=== PATIENT | female | born 1985 | race Hispanic/Latino ===

== ENCOUNTER 2019-05-23 00:07 | Observation (INO) | payer OTHER ==
[2019-05-23 00:58] LABS: Absolute Lymphocytes (CBC) 2.2 K/uL (0.7-4.9); Basophils % 0.5 % (0-1.3); Hematocrit 39.2 % (36.0-45.0); Lymphocytes % 29.5 % (15.3-44.8); MPV 9.2 fL (7.6-11.3); RBC Red Blood Cell Count 4.43 M/uL (3.86-4.86)
[2019-05-23 01:09] LABS: Albumin 3.7 g/dL (3.4-5.0); Bilirubin Direct 0.1 mg/dL (0-0.2); Bilirubin Total 0.5 mg/dL (0.2-1.0); Potassium 3.4 mmol/L (3.5-5.1); Protein, Total 6.6 g/dL (6.4-8.2)
[2019-05-23] MEDS ORDERED: LIDOCAINE VISCOUS 2% SOLN 15 ML UDC ONE (01:10)
[2019-05-23] MEDS ORDERED: MAGNE/ALUM HYDROXD 30 ML UCUP ONE (01:10)
[2019-05-23] MEDS ORDERED: MORPHINE 4 MG/ML SYR ONE (01:41)
[2019-05-23] MEDS ORDERED: ONDANSETRON 4 MG/2 ML VIAL ONE ×2 (01:41→12:19)
--- NOTE | 2019-05-23 03:07 | EDPHYS ---
Physician Documentation [facility] Name: Marycarmen Hernandez Age: 34 yrs Sex: Female : 1985 Arrival Date: 05/23/2019 Time: 00:10 Bed 20 Private MD: ED Physician Akhil Campbell HPI: 05/23 01:16 This 34 yrs old Female presents to ER via Ambulatory with complaints of Back pm1 Pain. 01:16 The patient presents with abdominal pain in the epigastric area. Onset: The pm1 symptoms/episode began/occurred yesterday. The symptoms radiate to back. Associated signs and symptoms: Pertinent negatives: nausea, vomiting, and diarrhea, chest pain, dysuria, fever, shortness of breath. The symptoms are described as sharp. Modifying factors: The symptoms are alleviated by nothing, the symptoms are aggravated by nothing. Severity of pain: in the emergency department the pain is actually worse. The patient has experienced similar episodes in the past, multiple times, but today's symptoms are worse, never had radiation of pain from epigastric area with GERD symptoms. The patient has not recently seen a physician. 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 - Social history:: Smoking status: Patient/guardian denies using tobacco. - Ebola Screening: : Patient negative for fever greater than or equal to 101.5 degrees Fahrenheit, and additional compatible Ebola Virus Disease symptoms Patient denies exposure to infectious person. ROS: 01:16 Constitutional: Negative for fever, chills, and weight loss, Eyes: Negative for injury, pm1 pain, redness, and discharge, ENT: Negative for injury, pain, and discharge, Neck: Negative for injury, pain, and swelling, Cardiovascular: Negative for chest pain, palpitations, and edema, Respiratory: Negative for shortness of breath, cough, wheezing, and pleuritic chest pain. 01:16 Back: Negative for injury and pain, : Negative for injury, bleeding, discharge, and swelling, MS/Extremity: Negative for injury and deformity, Skin: Negative for injury, rash, and discoloration, Neuro: Negative for headache, weakness, numbness, tingling, and seizure. 01:16 Abdomen/GI: Positive for abdominal pain, Negative for nausea, vomiting, and diarrhea, constipation. Exam: 01:16 Constitutional: This is a well developed, well nourished patient who is awake, alert, pm1 and in no acute distress. Head/Face: Normocephalic, atraumatic. Eyes: Pupils equal round and reactive to light, extra-ocular motions intact. Lids and lashes normal. Conjunctiva and sclera are non-icteric and not injected. Cornea within normal limits. Periorbital areas with no swelling, redness, or edema. ENT: Nares patent. No nasal discharge, no septal abnormalities noted. Tympanic membranes are normal and external auditory canals are clear. Oropharynx with no redness, swelling, or masses, exudates, or evidence of obstruction, uvula midline. Mucous membranes moist. Neck: Trachea midline, no thyromegaly or masses palpated, and no cervical lymphadenopathy. Supple, full range of motion without nuchal rigidity, or vertebral point tenderness. No Meningismus. Chest/axilla: Normal chest wall appearance and motion. Nontender with no deformity. No lesions are appreciated. Cardiovascular: Regular rate and rhythm with a normal S1 and S2. No gallops, murmurs, or rubs. Normal PMI, no JVD. No pulse deficits. Respiratory: Lungs have equal breath sounds bilaterally, clear to auscultation and percussion. No rales, rhonchi or wheezes noted. No increased work of breathing, no retractions or nasal flaring. 01:16 Back: No spinal tenderness. No costovertebral tenderness. Full range of motion. Skin: Warm, dry with normal turgor. Normal color with no rashes, no lesions, and no evidence of cellulitis. MS/ Extremity: Pulses equal, no cyanosis. Neurovascular intact. Full, normal range of motion. 01:16 Abdomen/GI: Inspection: abdomen appears normal, Bowel sounds: normal, Palpation: abdomen is soft and non-tender, in all quadrants, mass, is not appreciated, rebound tenderness, is not appreciated. 01:16 Neuro: Orientation: is normal, Motor: is normal, moves all fours. Vital Signs: 00:31 BP 128 / 78; Pulse 80; Resp 18; Temp 97.7; Pulse Ox 100% on R/A; 01:31 BP 120 / 71; Pulse 58; Resp 18; Pulse Ox 100% on R/A; 02:45 BP 98 / 52; Pulse 60; Resp 18; Pulse Ox 100% on R/A; wh 04:00 BP 102 / 49; Pulse 62; Resp 16; Pulse Ox 99% on R/A; jb4 05:00 BP 106 / 63; Pulse 59; Resp 18; Pulse Ox 99% on R/A; jb4 06:00 BP 92 / 45; Pulse 77; Resp 16; Pulse Ox 100% ; jb4 06:15 BP 100 / 58; Pulse 72; Resp 16; Pulse Ox 100% on R/A; jb4 MDM: 00:25 Patient medically screened. [facility] 01:29 Data reviewed: vital signs. Data interpreted: Pulse oximetry: on room air is 100 %. pm1 Interpretation: normal. 03:05 Physician consultation: Albaro Rick MD was called at 03:00, message left and text pm1 sent. 05/23 00:35 Order name: Basic Metabolic Panel; Complete Time: 05/23 00:35 Order name: CBC with Diff; Complete Time: 05/23 00:35 Order name: Creatinine for Radiology; Complete Time: 05/23 00:35 Order name: Hepatic Function; Complete Time: 05/23 00:35 Order name: Lipase; Complete Time: : 05/23 00:59 Order name: Urine Dipstick--Ancillary (enter results); Complete Time: 03:35 [facility] 05/23 00:59 Order name: Urine --Ancillary (enter results); Complete Time: 03:35 [facility] 05/23 01:34 Order name: CT Abd/Pelvis - IV Contrast Only pm1 05/23 00:35 Order name: IV Saline Lock; Complete Time: 00:45 05/23 00:35 Order name: Labs collected and sent; Complete Time: 00: 05/23 00:35 Order name: Urine Dipstick-Ancillary (obtain specimen); Complete Time: 00: 05/23 00:35 Order name: Urine Test (obtain specimen); Complete Time: 05/23 03:09 Order name: NPO; Complete Time: 03:37 pm1 05/23 05:43 Order name: NPO EDMS Administered Medications: 01:12 Drug: GI Cocktail without - (Maalox Suspension 30 ml, Lidocaine Liquid 2 % 15 wh ml) Route: PO; 01:40 Follow up: Response: No adverse reaction; Pain is unchanged, physician notified 01:44 Drug: morphine 4 mg {Note: RASS 0.} Route: IVP; Site: right antecubital; 01:44 Drug: Zofran 4 mg Route: IVP; Site: right antecubital; 04:09 Drug: Zosyn 3.375 grams Route: IVPB; Infused Over: 60 mins; Site: right antecubital; 4 05:09 Follow up: Response: No adverse reaction; IV Status: Completed infusion; IV Intake: jb4 100ml 04:09 Drug: NS 0.9% 1000 ml Route: IV; Rate: 125 ml/hr; Site: right antecubital; jb4 Disposition: 05/23/19 03:06 Hospitalization ordered by Albaro Rick for Observation. Preliminary diagnosis is Cholecystitis. - Bed requested for Telemetry/MedSurg (observation). - Status is Observation. jb4 - Condition is Stable. - Problem is new. - Symptoms have improved. UTI on Admission? No Addendum: 05/25/2019 09:19 Co-signature as Attending Physician, Akhil Campbell MD I agree with the assessment and c roche plan of care. Signatures: Dispatcher [employer] Akhil Ramirez MD MD cha Garcia, Cindy RN RN Clyde Machado NP PODIATRIC ASSISTANT pm1 Albaro Reed RN RN jb4 Nan Lin Corrections: (The following items were deleted from the chart) 05/23 00:27 00:26 Knee Immobilizer ordered. pm1 pm1 00:27 00:26 Crutches ordered. pm1 pm1 01:38 01:35 Abdomen Pelvis W Con+CT.RAD.BRZ ordered. EDNY EDMS 05:40 03:15 NPO ordered. EDNY EDMS 05:45 03:06 Hospitalization Ordered by Albaor Rick MD for Observation. Preliminary cg diagnosis is Cholecystitis. Bed requested for Telemetry/MedSurg (observation). Status is Observation. Condition is Stable. Problem is new. Symptoms have improved. UTI on Admission? No. pm1 06:24 05:45 05/23/2019 03:06 Hospitalization Ordered by Albaro Rick MD for Observation. jb4 Preliminary diagnosis is Cholecystitis. Bed requested for Telemetry/MedSurg (observation). Status is Observation. Condition is Stable. Problem is new. Symptoms have improved. UTI on Admission? No. cg
--- NOTE | 2019-05-23 03:07 | ER ---
Nurse's Notes [facility] Name: Marycarmen Hernandez Age: 34 yrs Sex: Female : 1985 Arrival Date: 05/23/2019 Time: 00:10 Bed 20 Private MD: Diagnosis: Cholecystitis Presentation: 05/23 00:26 Presenting complaint: Patient states: she is having epigastric pain that started a wh couple of hours ago. Pt has Hx of GERD and takes Prilosec at home. Transition of care: patient was not received from another setting of care. Onset of symptoms was May 22, 2019. Risk Assessment: Do you want to hurt yourself or someone else? Patient reports no desire to harm self or others. Initial Sepsis Screen: Does the patient meet any 2 criteria? No. Patient's initial sepsis screen is negative. Does the patient have a suspected source of infection? No. Patient's initial sepsis screen is negative. Care prior to arrival: None. 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 - Social history:: Smoking status: Patient/guardian denies using tobacco. - Ebola Screening: : Patient negative for fever greater than or equal to 101.5 degrees Fahrenheit, and additional compatible Ebola Virus Disease symptoms Patient denies exposure to infectious person. Screenin:27 Abuse screen: Denies threats or abuse. Denies injuries from another. Nutritional screening: No deficits noted. Tuberculosis screening: No symptoms or risk factors identified. Fall Risk None identified. Assessment: 00:28 General: Appears in no apparent distress. Behavior is calm, cooperative, appropriate for age. Pain: Complains of pain in epigastric area Pain radiates to back Pain currently is 6 out of 10 on a pain scale. Quality of pain is described as sharp, Pain began 3 hours ago. Neuro: Level of Consciousness is awake, alert, obeys commands, Oriented to person, place, time, situation, Appropriate for age. Cardiovascular: Heart tones S1 S2. Respiratory: Airway is patent Respiratory effort is even, unlabored, Respiratory pattern is regular, symmetrical. GI: Abdomen is flat, Bowel sounds present X 4 quads. Abd is soft and non tender. : No signs and/or symptoms were reported regarding the genitourinary system. EENT: No signs and/or symptoms were reported regarding the EENT system. Derm: Skin is intact, is healthy with good turgor, Skin is pink, warm \T\ dry. normal. Musculoskeletal: Circulation, motion, and sensation intact. 01:31 Reassessment: Patient appears in no apparent distress at this time. No changes from previously documented assessment. Patient and/or family updated on plan of care and expected duration. Pain level reassessed. Patient is alert, oriented x 3, equal unlabored respirations, skin warm/dry/pink. 02:45 Reassessment: Patient appears in no apparent distress at this time. No changes from previously documented assessment. Patient and/or family updated on plan of care and expected duration. Pain level reassessed. Patient is alert, oriented x 3, equal unlabored respirations, skin warm/dry/pink. Patient states feeling better. 03:45 Reassessment: Patient appears in no apparent distress at this time. Patient and/or jb4 family updated on plan of care and expected duration. Pain level reassessed. Patient is alert, oriented x 3, equal unlabored respirations, skin warm/dry/pink. 05:00 Reassessment: Patient appears in no apparent distress at this time. Patient and/or jb4 family updated on plan of care and expected duration. Pain level reassessed. Patient is alert, oriented x 3, equal unlabored respirations, skin warm/dry/pink. Patient states feeling better. 06:02 Reassessment: Patient appears in no apparent distress at this time. Patient and/or jb4 family updated on plan of care and expected duration. Pain level reassessed. Patient is alert, oriented x 3, equal unlabored respirations, skin warm/dry/pink. Attempted to call report, will call back in 15minutes. Vital Signs: 00:31 BP 128 / 78; Pulse 80; Resp 18; Temp 97.7; Pulse Ox 100% on R/A; wh 01:31 BP 120 / 71; Pulse 58; Resp 18; Pulse Ox 100% on R/A; wh 02:45 BP 98 / 52; Pulse 60; Resp 18; Pulse Ox 100% on R/A; wh 04:00 BP 102 / 49; Pulse 62; Resp 16; Pulse Ox 99% on R/A; jb4 05:00 BP 106 / 63; Pulse 59; Resp 18; Pulse Ox 99% on R/A; jb4 06:00 BP 92 / 45; Pulse 77; Resp 16; Pulse Ox 100% ; jb4 06:15 BP 100 / 58; Pulse 72; Resp 16; Pulse Ox 100% on R/A; jb4 ED Course: 00:10 Patient arrived in ED. cl3 00:20 Nan Lin is Primary Nurse. wh 00:23 Clyde Machado NP is PHCP. pm1 00:23 Akhil Campbell MD is Attending Physician. pm1 00:27 Triage completed. wh 00:29 Arm band placed on left wrist. wh 00:30 Patient has correct armband on for positive identification. Bed in low position. Call light in reach. Side rails up X 1. Pulse ox on. NIBP on. 02:09 CT Abd/Pelvis - IV Contrast Only In Process Unspecified. EDMS 03:06 Albaro Rick MD is Hospitalizing Provider. pm1 04:00 Primary Nurse role handed off by Nan Lin jb4 04:00 Albaro Reed RN is Primary Nurse. jb4 06:22 No provider procedures requiring assistance completed. Patient admitted, IV remains in jb4 place. Administered Medications: 01:12 Drug: GI Cocktail without - (Maalox Suspension 30 ml, Lidocaine Liquid 2 % 15 wh ml) Route: PO; 01:40 Follow up: Response: No adverse reaction; Pain is unchanged, physician notified 01:44 Drug: morphine 4 mg {Note: RASS 0.} Route: IVP; Site: right antecubital; 01:44 Drug: Zofran 4 mg Route: IVP; Site: right antecubital; 04:09 Drug: Zosyn 3.375 grams Route: IVPB; Infused Over: 60 mins; Site: right antecubital; 4 05:09 Follow up: Response: No adverse reaction; IV Status: Completed infusion; IV Intake: jb4 100ml 04:09 Drug: NS 0.9% 1000 ml Route: IV; Rate: 125 ml/hr; Site: right antecubital; jb4 Intake: 05:09 IV: 100ml; Total: 100ml. jb4 Outcome: 03:06 Decision to Hospitalize by Provider. pm1 06:23 Admitted to Tele accompanied by tech, via wheelchair, room 404, with chart, Report jb4 called to JORGE Fleming 06:23 Condition: stable 06:23 Discharge instructions given to patient, Instructed on the need for admit, Demonstrated understanding of instructions. 06:24 Patient left the ED. jb4 Signatures: Dispatcher [employer] EDClyde Salazar, PRODUCTION OPERATIONS MANAGER PRODUCTION OPERATIONS MANAGER pm1 Albaro Reed, RN RN jb4 Nan Lin Charde cl3
[2019-05-23] MEDS ORDERED: ONDANSETRON 4 MG/2 ML VIAL IV PRN ×3 (03:08→14:05)
[2019-05-23] MEDS ORDERED: MORPHINE 4 MG/ML SYR IV PRN ×2 (03:08→05:41)
[2019-05-23 03:30] LABS: Urine Blood NEGATIVE (NEG); Urine Glucose NEGATIVE (NEG); Urine Protein 1+ (NEG); Urine Specific Gravity 1.015 (1.005-1.030); Urine pH 8.5 (5.0-7.0)
[2019-05-23] MEDS ORDERED: PIPER/TAZO/NS 3.375gm 3.375 GM/100 ML BAG IVPB SCH ×2 (03:30→12:00)
[2019-05-23] MEDS ORDERED: PIPER/TAZO/NS 3.375gm 3.375 GM/100 ML BAG ONE (03:55)
[2019-05-23] MEDS ORDERED: NA CHLORIDE 0.9% 1,000 ML ONE (03:55)
[2019-05-23] MEDS ORDERED: D5 0.45 NS 1,000 ML IV SCH (04:00)
[2019-05-23 06:37] VITALS: BMI 25.8
[2019-05-23] MEDS: D5 0.45 NS 1,000 ML IV SCH ×2 (07:22→14:00)
[2019-05-23] MEDS ORDERED: CEFOXITIN SODIUM 1 GM/VIAL IVPB ONE (09:51)
[2019-05-23] MEDS: PIPER/TAZO/NS 3.375gm 3.375 GM/100 ML BAG IVPB SCH ×2 (10:41→20:00)
--- NOTE | 2019-05-23 10:42 | PREOPHP ---
Date of Admission: 05/23/2019 Reason: Abdominal pain. History Of Present Illness: The patient is a 34-year-old female who comes in with acute onset of epi gastric pain going to the back, associated with nausea, vomiting, bloating, belching, and heartburn. No sore throat, runny nose, cough, headaches, or dizziness. No chest pain. No fever or chills. No diarrhea, constipation, or blood in her stool. No dysuria or hematuria. This is her third attack i n the past week. She has had some milder attacks in the past, she has attributed that to heartburn a nd this is always postprandial in nature. Following greasy and spicy foods. Review of Systems: Otherwise unremarkable. Past Medical History: Negative. Past Surgical History: Negative. Allergies: NONE. Social History: Patient does not smoke. Drinks occasionally. Family History: Significant for diabetes. Physical Examination: Vital Signs: Stable. She is currently afebrile. She is awake, alert, and oriented x3. Head and Neck: Cranial 2 through 12 grossly within normal limits. No neck masses. No JVD. Throat clear. Neck is supple. No evidence of icterus. Chest: Clear. Heart: S1 and S2. Abdomen: Soft, nondistended. Minimal tenderness in the right upper quadrant. No rebound, rigidity, or guarding at this time. Extremities: Adequately perfused. Nontender. Neuro: Nonfocal. Laboratory Data: Reviewed. White count is normal. Chemistry reviewed. LFT, amylase and lipase are normal. CT of the abdomen and pelvis shows cholelithiasis with thickening of the gallbladder wall c onsistent with cholecystitis. Assessment: Acute cholecystitis and cholelithiasis. Plan: Admit, n.p.o., IV fluid, IV antibiotic, to the OR for lap shubham, possible open. Patient under stands the risks, benefits, and alternatives and agrees to procedure. /MODL Voice ID: [id number]
[2019-05-23] MEDS ORDERED: CEFOXITIN/SWI 1gm 1 GM/10 ML SYR IV SCH (11:00)
[2019-05-23 11:34] LABS: Urine Appearance TURBID; Urine Bilirubin NEGATIVE (NEG); Urine Blood NEGATIVE (NEG); Urine Color YELLOW; Urine Glucose NEGATIVE (NEG); Urine Protein NEGATIVE (NEG); Urine Specific Gravity >=1.030 (1.005-1.030); Urine Urobilinogen 0.2 mg/dL (0.2-1.0); Urine pH 8.5 (5.0-7.0)
[2019-05-23 11:37] LABS: Urine Microscopic Reflex ORDER UMIC
[2019-05-23] MEDS ORDERED: Ringers Lactate 1,000 ML IV ONE (11:48)
[2019-05-23 12:00] LABS: Urine Amorphous Sediment 4+ /HPF (NONE SEEN); Urine Bacteria <20 /HPF (<20); Urine Culture Reflex Order NOT NEEDED; Urine RBC <5 /HPF (NONE SEEN)
[2019-05-23] MEDS ORDERED: PROPOFOL 200 MG/20 ML VIAL IV ONE (12:18)
[2019-05-23] MEDS ORDERED: MIDAZOLAM HCL 2 MG/2 ML INJ ONE (12:18)
[2019-05-23] MEDS ORDERED: FENTANYL CITR 100 MCG/2 ML ONE (12:18)
[2019-05-23] MEDS ORDERED: GLYCOPYRROLATE 0.2 MG/ML SYR ONE (12:19)
[2019-05-23] MEDS ORDERED: NEOSTIGMINE 1 MG/ML -10 ML VIAL ONE (12:19)
[2019-05-23] MEDS ORDERED: KETOROLAC 30 MG/ML INJ ONE (12:19)
[2019-05-23] MEDS ORDERED: MORPHINE 10 MG/ML VIAL ONE (12:19)
[2019-05-23] MEDS ORDERED: ROCURONIUM 50 MG/5 ML VIAL IV ONE (12:20)
[2019-05-23] MEDS ORDERED: LIDOCAINE 1% MPF 5 ML VIAL ONE (12:20)
[2019-05-23] MEDS ORDERED: Mastisol Adhesive Liq ONE (13:15)
--- NOTE | 2019-05-23 13:26 | P.OP ---
Pest Locator: Hillary Chopra RN Preoperative diagnosis: Acute Cholecystitis and Cholelithiasis Postoperative diagnosis: same Primary procedure: Lap Ronda Anesthesia: General Estimated blood loss: min Specimen: GB Findings: as above Complications: None Transferred to: Recovery Room Condition: Good
[2019-05-23] MEDS: HYDROMORPHONE HCL 1 MG/ML INJ ONE ×2 (14:01→14:09)
[2019-05-23] MEDS ORDERED: HYDROCODONE/APAP 7.5/325 MG TAB PO PRN (14:05)
[2019-05-23] MEDS ORDERED: HYDROMORPHONE HCL 1 MG/ML INJ ONE (14:21)
[2019-05-23] MEDS: HYDROMORPHONE HCL 1 MG/ML INJ IV PRN ×2 (15:22→19:58)
[2019-05-23] MEDS ORDERED: DIPHENHYDRAMINE 25 MG TAB/CAP PO PRN (16:38)
[2019-05-23 16:56] VITALS: O2SAT 96
[2019-05-23] MEDS ORDERED: PROMETHAZINE 25 MG/ML VIAL IV PRN (19:21)
--- NOTE | 2019-05-24 01:03 | OP ---
Date of Procedure: 05/23/2019 Surgeon: Joby Krishnamurthy MD Maintenance Supervisor 2Nd Shift: Hillary Chopra RN Preoperative Diagnoses: 1. Acute cholecystitis and cholelithiasis. 2. Umbilical hernia. Postoperative Diagnoses: 1. Acute cholecystitis and cholelithiasis. 2. Umbilical hernia. Procedure: 1. Laparoscopic cholecystectomy. 2. Repair of umbilical hernia. Estimated Blood Loss: Minimal. Specimens: Gallbladder, hernia sac and contents. Findings: As above. Anesthesia: General. Complications: None. Disposition: Patient tolerated the procedure, in stable condition, taken to Recovery in good general condition. Procedure In Detail: Patient was brought to the OR and placed in supine position. General anesthesia was begun. Patient was prepped and draped in the usual sterile fashion. Marcaine 0.5% was infiltrated locally. A 15-blade was used to make a 1 cm midline incision over the umbilical hernia that was present. So, the hernia sac and contents were identified, dissected free, and dissected through the fascia and then excised, sent to Pathology. Then a 1 cm incision was made by extending the hernia defect and then #1 Vicryl stay suture was placed. Peritoneal cavity was entered with sharp and blunt dissection. 12 mm trocar was placed into the peritoneal cavity under direct vision. Pneumoperitoneum was established. Three 5 mm trocars were placed, 1 in the epigastrium just to the right of midline and 2 in the right subcostal region. Laparoscopy revealed acute inflammation of the gallbladder. Fundus retracted superiorly. Infundibulum was identified and retracted inferolaterally. Cystic duct and cystic artery were clearly identified with blunt dissection. Clips placed. Both cysts were divided. Cautery was used to remove the gallbladder from the liver bed. Bleeding on the liver bed controlled with cautery. The gallbladder was retrieved through the umbilicus via an EndoCatch bag. The right upper quadrant was irrigated. Effluent was clear. No evidence of bleeding or bile leakage appreciated. Subsequently, all trocars were removed under direct vision. Stay sutures were tied to each other across the fascial defect. Subcutaneous wounds were irrigated. Bleeding controlled with cautery. A 3-0 chromic used to approximate the subcutaneous tissue and close the skin. Sterile dressing was applied. Patient was awakened and taken to Recovery in good general condition. JOAQUIN/LIZZY Voice ID: [id number] Report ID: [id number] MTDD
[2019-05-24] MEDS: HYDROMORPHONE HCL 1 MG/ML INJ IV PRN (03:07)
[2019-05-24] MEDS: PIPER/TAZO/NS 3.375gm 3.375 GM/100 ML BAG IVPB SCH (03:08)
[2019-05-24 08:37] VITALS: BP 109/53; TEMP 99
[2019-05-24] MEDS ORDERED: TRAMADOL 37.5mg/APAP 325mg PER TAB PO ONE (12:00)
--- NOTE | 2019-05-25 03:35 | DS ---
Date of Discharge: 05/24/2019 Admitting Diagnosis: Acute cholecystitis and cholelithiasis. Discharge Diagnosis: Acute cholecystitis and cholelithiasis. Procedure Performed: Laparoscopic cholecystectomy. Hospital Course: Patient is a 34-year-old female was admitted with abdominal pain, workup revealed a cute cholecystitis and cholelithiasis. Patient underwent lap choly yesterday. Postoperatively she i s tolerating diet and ambulating, pain controlled with p.o. pain medication, afebrile. Therefore pat ient will be discharged to home. Disposition: Home. Condition: Stable. Discharge Instructions: Resume home medications and diet. Activity as tolerated. No heavy lifting. Remove outer dressing in a.m. Shower. Keep wound clean and dry. Keep Steri-Strips on at all time s. Incentive spirometry is ordered. Ultracet 1 tablet p.o. q.4 p.r.n. pain. Follow up in my office in a week. Call for appointment. JOAQUIN/LIZZY Voice ID: [id number] Report ID: [id number]
--- NOTE | 2019-05-25 11:16 | RAD REPORT ---
EXAM DESCRIPTION: CT ABDOMEN AND PELVIS WITH CONTRAST. CLINICAL HISTORY: Epigastric pain. COMPARISON: None. TECHNIQUE: Axial CT imaging of the abdomen and pelvis performed with intravenous contrast. Reformatt ed coronal and sagittal images reviewed. A dose reduction technique was utilized with automated exposure control according to patient size. FINDINGS: Clear lung bases. Heart is normal in size. Normal liver. The gallbladder contains a few stones. There is diffuse gallbladder wall thickening. No biliary dilatation. Normal spleen, pancreas, adrenal glands, and kidneys. Normal aorta and inferior vena cava caliber. No adenopathy. Mesenteric vessels appear normal. Normal stomach, small bowel loops, right lower quadrant appendix, and colon. No adenopathy, ascites, or free air. Tiny fat-containing umbilical hernia. Normal bladder. Minimal endometrial fluid. Normal ovarian follicular changes. No pelvic free fluid or adenopathy. Normal lumbosacral alignment. Intact bony pelvis. Oral hips. Soft tissues appear normal. IMPRESSION: 1. Cholelithiasis with gallbladder wall thickening compatible with acute cholecystitis. No biliary dilatation. 2. Tiny fat-containing umbilical hernia.. Electronically signed by: Conchis Alcaraz DO 05/23/2019 2:40 AM CDT Due to temporary technical issues with the PACS/Fluency reporting system, reports are being signed by the in house radiologist as a courtesy to ensure prompt reporting. The interpreting radiologist is f ully responsible for the content of the report.
== END 2019-05-24 11:37 | disposition home or self-care (01) ==
LOC: ER 00:07 → 4TH 06:09
PROVIDERS: ADMIT Surgery; ATTEND Surgery
PROC: 0WQF0ZZ Repair Abdominal Wall, Open Approach (ICD-10-PCS; 2019-05-23)
PROC: 0FT44ZZ Resection of Gallbladder, Percutaneous Endoscopic Approach (ICD-10-PCS; principal; 2019-05-23 12:30)
DX: K80.12 Calculus of gallbladder with acute and chronic cholecystitis without obstruction (principal); K42.9 Umbilical hernia without obstruction or gangrene; K21.9 Gastro-esophageal reflux disease without esophagitis; Z83.3 Family history of diabetes mellitus
CPT/HCPCS: 96365; 85025; 80048; 36415; 81025; 80076; 88302; 88304; 83690; 74177; 96375; 99285; 47562; 49585; Q9967; J2704; J2710; J2550; J2250; J3010; J2543 ×2; J1170 ×5; G0378 ×4; J7030; J2405 ×3; 81003; 81015